=== PATIENT | male | born 1950 | race Caucasian/White ===

== ENCOUNTER 2021-01-25 09:14 | Day surgery (SDC) | payer MEDICAID ==
[2021-01-22 10:40] LABS: COVID AG,FIA SOURCE NASOPHARYNGEAL
[~2021-01-25] VITALS: Ht 165.1 cm; Wt 77.3 kg
[~2021-01-25 09:14] MED LIST: SODIUM CHLORIDE 0.9% 1,000 ML ONE
[2021-01-25] MEDS ORDERED: LIDOCAINE/PF 2% 5 ML VIAL IM ONE (09:15)
[2021-01-25] MEDS ORDERED: PROPOFOL 1% 20 ML VIAL IVP ONE (09:15)
[2021-01-25] MEDS ORDERED: CLOP75TA60 PO (09:47)
[2021-01-25] MEDS ORDERED: CARV6 PO (09:47)
[2021-01-25] MEDS ORDERED: TAMS-13 PO (09:47)
[2021-01-25] MEDS ORDERED: GLIM2 PO (09:47)
[2021-01-25] MEDS ORDERED: ATOR20TA86 PO (09:47)
[2021-01-25] MEDS ORDERED: METF-961 PO (09:47)
[2021-01-25] MEDS ORDERED: ENAL-90 PO (09:47)
[2021-01-25] MEDS ORDERED: ASPI-1450 PO (09:47)
[2021-01-25] MEDS ORDERED: GABA-1181 PO (09:47)
[2021-01-25] MEDS ORDERED: SODIUM CHLORIDE 0.9% 1,000 ML IV ONE (10:00)
[2021-01-25 10:18] LABS: GLUCOMETER DEV NAME(LOC) SDS.; GLUCOSE,POINT OF CARE 148 MG/DL (70-110)
== END 2021-01-25 12:20 | disposition home or self-care (01) ==
LOC: SURGERY 09:14
PROVIDERS: ATTEND Internal Medicine Gastroenterology
DX: R19.5 Other fecal abnormalities (principal); D12.5 Benign neoplasm of sigmoid colon; E11.9 Type 2 diabetes mellitus without complications; E66.3 Overweight; K57.30 Diverticulosis of large intestine without perforation or abscess without bleeding; I10 Essential (primary) hypertension; I25.2 Old myocardial infarction; Z79.899 Other long term (current) drug therapy; Z79.4 Long term (current) use of insulin; Z95.5 Presence of coronary angioplasty implant and graft; Z98.890 Other specified postprocedural states
CPT/HCPCS: 45385; 82962; 87426; 88305; C1769; C9803; J2704; J3490; J7030